=== PATIENT | female | born 1970 | race Caucasian/White ===

== ENCOUNTER 2022-01-21 12:24 | Outpatient (CLI) | payer OTHER | END 2022-01-21 12:25 | disposition home or self-care (01) | LOC: SCSCT 12:24 | PROVIDERS: ATTEND Nurse Practitioner Family | DX: M47.26 Other spondylosis with radiculopathy, lumbar region (principal); M53.3 Sacrococcygeal disorders, not elsewhere classified; M47.817 Spondylosis without myelopathy or radiculopathy, lumbosacral region | CPT/HCPCS: 72148; 72192 ==